=== PATIENT | female | born 1990 | race Caucasian/White ===

== ENCOUNTER 2019-03-19 04:23 | Emergency (ER) | payer BC ==
--- NOTE | 2019-03-19 04:31 | PHYS DOC ---
Past History Past Medical History: Fibromyalgia Adult General Chief Complaint Chief Complaint: UPPER EXTREMITY PAIN.. " It started last week.. mainly on Rt. side of my neck.. and radiates all the way down to my wrist.. it is worse when I shrug...my shoulders.. but tonight my Lt arm started doing the same thing... It feels like josé splints.... 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 Pain is worse with short-acting of shoulders. Patient states pain is rated 5-6 out of 10. Has been somewhat constant over the last week. Pain seemed to get worse starting this past Sunday. Pain is described as a electrical shock running down her arms. Patient denies any history of cardiac disorders. Patient has history of blood clots with her family members. Patient denies any recent neck injury. No history of fever or chills. Recent hx of upper respiratory infection. No history of travel. No specific ill contacts out side of family. All the family members recently had a viral or upper respiratory infection. Review of Systems Review of Systems Constitutional: Denies fever or chills [] Eyes: Denies change in visual acuity, redness, or eye pain [] HENT: Denies nasal congestion or sore throat [] Respiratory: Denies cough or shortness of breath [] Cardiovascular: No additional information not addressed in HPI [] GI: Denies abdominal pain, nausea, vomiting, bloody stools or diarrhea [] : Denies dysuria or hematuria [] Musculoskeletal: Complaints of neck and bilateral arm pain Integument: Denies rash or skin lesions [] Neurologic: Denies headache, focal weakness or sensory changes [] Endocrine: Denies polyuria or polydipsia [] All other systems were reviewed and found to be within normal limits, except as documented in this note. Family History Family History Noncontributory Current Medications Current Medications Nursing for home meds Allergies Allergies No known drug allergies Physical Exam Physical Exam Constitutional: Moderate acute distress, non-toxic appearance. [] HENT: Normocephalic, atraumatic, bilateral external ears normal, oropharynx moist, no oral exudates, nose normal. [] Eyes: PERRLA, EOMI, conjunctiva normal, no discharge. Glasses Neck: Normal range of motion, bilateral trapezius tenderness, supple, no stridor. Obvious bilateral trapezius muscle spasms. Pain in the neck is exacerbated by shrugging of shoulders. Cardiovascular:Heart rate regular rhythm, no murmur [] Lungs & Thorax: Bilateral breath sounds equal at apexes on auscultation [] Abdomen: Bowel sounds normal, soft, no tenderness, no masses, no pulsatile masses. Obese. Skin: Warm, dry, no erythema, no rash. [] Back: Trapeze supple tenderness, no CVA tenderness. [] Extremities: Complaints of bilateral arm tenderness, no cyanosis, no clubbing, ROM intact, no edema. [] Neurologic: Alert and oriented X 3, moves all extremities on request. Has distal sensory., no focal deficits noted. []DTRs +2 patella and brachial. Right Hand dominant. Psychologic: Affect anxious, judgement normal, mood normal. [] EKG EKG I interpretation EKG shows a sinus rhythm at 74 bpm. There is mild leftward axis. And some nonspecific contour changes anterior septal leads. But no findings acute STEMI with contralateral changes.[] Radiology/Procedures Radiology/Procedures [][place] [address] IMAGING REPORT Signed PATIENT: ISABEL LEPEOUNT: [id number] : 1990 LOCATION: ER AGE: 28 SEX: F EXAM STATUS: REG ER ORD. PHYSICIAN: SHANA PANTOJA MD REASON: Neuropathic pain in neck and arms, nausea PROCEDURE: CT CERVICAL SPINE WO CONTRAST Study: CT cervical spine without contrast INDICATION: Neuropathic pain. Nausea. COMPARISON: None. TECHNIQUE: Axial CT imaging of the cervical spine performed without intravenous contrast. Sagittal and coronal reformats were obtained. One or more of the following individualized dose reduction techniques were utilized for this examination: 1. Automated exposure control 2. Adjustment of the mA and/or kV according to patient size 3. Use of iterative reconstruction technique. FINDINGS: Degraded study secondary to patient body habitus. No acute osseous abnormality. Straightening of cervical lordosis. Maintained vertebral body height. No significant disc space narrowing. No facet degeneration. No significant bony encroachment on the central canal or neural foramina. Partially visualized maxillary sinus mucosal thickening. IMPRESSION: 1. No acute osseous abnormality. 2. No significant degenerative changes. No bony encroachment seen upon the central canal or neural foramina. Electronically signed by: SEAN KIRBY MD (03/19/2019 6:10 AM) [facility] DICTATED AND SIGNED BY: SEAN KIRBY MD DATE: 03/19/19 0610 CC: SHANA PANTOJA MD; PCP,NO ~ Course & Med Decision Making Course & Med Decision Making Pertinent Labs and Imaging studies reviewed. (See chart for details) Patient take Tylenol and ibuprofen for pain. Use warm moist heat packs and gentle massage. Towel roll for pillow at night. . Follow-up primary care. Take a daily aspirin 81 mg. Must follow-up. Return if any concerns. Suspect Viral syndrome/Inflammatory syndrome Impression: 1. Cervical neuropathy ( no obvious laina impingement on CT) 2. Trapezius muscle spasm 3. Elevation of leukocytes 15.0 4. Mild thrombocytosis 531 5. Mild elevation eosinophils 6. Mild elevation in sedimentation rate 34 7. Minimal elevation in d-dimer0.61 [] Dragon Disclaimer Dragon Disclaimer This electronic medical record was generated, in whole or in part, using a voice recognition dictation system. Departure Departure: Disposition: 01 HOME/RESIDENCE PRIOR TO ADM Condition: STABLE Scripts Cyclobenzaprine Hcl (CYCLOBENZAPRINE HCL) 10 Mg Tablet 10 MG PO tidprn for spasms, #30 TAB Prov: SHANA PANTOJA MD 03/19/19 Dragon Disclaimer This chart was dictated in whole or in part using Voice Recognition software in a busy, high-work load, and often noisy Emergency Department environment. It may contain unintended and wholly unrecognized errors or omissions. SHANA PANTOJA MD Mar 19, 2019 04:31
[2019-03-19] MEDS ORDERED: IV RINGERS SOLUTION,LACTATED 1,000 ML IV SCH (05:00)
[2019-03-19 05:27] LABS: BASO # 0.1 x10^3/uL (0.0-0.2); BASO % 1 % (0-3); EOS # 1.7 x10^3/uL (0.0-0.7); EOS % 11 % (0-3); HEMATOCRIT 40.9 % (36.0-47.0); HEMOGLOBIN 14.2 g/dL (12.0-15.5); LYMPH # 3.4 x10^3/uL (1.0-4.8); LYMPH % 23 % (24-48); MEAN CORPUSCULAR HEMOGLOBIN 28 pg (25-35); MEAN CORPUSCULAR HGB CONC 35 g/dL (31-37); MEAN CORPUSCULAR VOLUME 81 fL (79-100); MONO # 0.9 x10^3/uL (0.0-1.1); MONO % 6 % (0-9); NEUT # 8.8 x10^3uL (1.8-7.7); NEUT % 59 % (31-73); PLATELET COUNT 531 x10^3/uL (140-400); RED BLOOD COUNT 5.03 x10^6/uL (3.50-5.40); RED CELL DISTRIBUTION WIDTH 13.7 % (11.5-14.5)
[2019-03-19 05:34] LABS: BILIRUBIN,URINE NEG (NEG); CLARITY,URINE CLEAR; COLOR,URINE YELLOW; GLUCOSE,URINE NEG (NEG); NITRITE,URINE NEG (NEG); RBC,URINE 0 /HPF (0-2); UROBILINOGEN,URINE 0.2 mg/dL (0.2 mg/dL)
[2019-03-19 05:35] LABS: BACTERIA,URINE FEW /HPF (0-FEW); BARBITURATES NEG (NEG); BENZODIAZEPINES NEG (NEG); CANNABINOIDS NEG (NEG); COCAINE NEG (NEG); METHADONE NEG (NEG); OPIATES NEG (NEG); PHENCYCLIDINE NEG (NEG); SQUAMOUS EPITHELIAL CELL,UR MANY /LPF
[2019-03-19 05:39] LABS: CALCIUM 8.9 mg/dL (8.5-10.1); CREATININE 0.8 mg/dL (0.6-1.0); GFR 86.7; MAGNESIUM 1.9 mg/dL (1.8-2.4); POTASSIUM 3.7 mmol/L (3.5-5.1)
[2019-03-19 05:39] LABS: AMPHETAMINE/METHAMPHETAMINE NEG (NEG)
[2019-03-19 05:50] LABS: % BANDS 1 % (0-9); % EOS 10 % (0-5); % LYMPHS 34 % (24-48); % MONOS 4 % (0-10); % SEGS 51 % (35-66); PLT ESTIMATE INCREASED (ADEQUATE)
--- NOTE | 2019-03-19 06:13 | RAD ---
Study: CT cervical spine without contrast INDICATION: Neuropathic pain. Nausea. COMPARISON: None. TECHNIQUE: Axial CT imaging of the cervical spine performed without intravenous contrast. Sagittal and coronal reformats were obtained. One or more of the following individualized dose reduction techniques were utilized for this examination: 1. Automated exposure control 2. Adjustment of the mA and/or kV according to patient size 3. Use of iterative reconstruction technique. FINDINGS: Degraded study secondary to patient body habitus. No acute osseous abnormality. Straightening of cervical lordosis. Maintained vertebral body height. No significant disc space narrowing. No facet degeneration. No significant bony encroachment on the central canal or neural foramina. Partially visualized maxillary sinus mucosal thickening. IMPRESSION: 1. No acute osseous abnormality. 2. No significant degenerative changes. No bony encroachment seen upon the central canal or neural foramina. Electronically signed by: SEAN KIRBY MD (03/19/2019 6:10 AM) [facility]
[2019-03-19 06:23] LABS: SEDIMENTATION RATE 34 (0-25)
[2019-03-19 06:28] VITALS: BP 112/65
[2019-03-19] MEDS ORDERED: CYCL-331 PO (06:28)
[2019-03-19] MEDS ORDERED: KETOROLAC 30 MG/ML VIAL. IVP ONE ×3 (06:30→07:00)
[2019-03-19] MEDS ORDERED: ORPHENADRINE CITRATE 60 MG/2 ML VIAL. IV ONE (07:00)
--- NOTE | 2019-03-19 22:51 | EKG ---
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
== END 2019-03-19 06:43 | disposition home or self-care (01) ==
LOC: ER 04:23
DX: G54.2 Cervical root disorders, not elsewhere classified (principal); M62.838 Other muscle spasm; D47.3 Essential (hemorrhagic) thrombocythemia; D72.1 Eosinophilia; R70.0 Elevated erythrocyte sedimentation rate; R79.1 Abnormal coagulation profile; M79.7 Fibromyalgia
CPT/HCPCS: 36415; 72125; 80048; 80307; 81001; 81025; 82550; 83735; 84443; 84484; 85007; 85025; 85379; 85610; 85651; 85730; 87086; 93005; 96374; 96375; 99285; J1885; J2360; J7120